=== PATIENT | male | born 1965 | race Hispanic/Latino ===

== ENCOUNTER 2022-07-20 17:10 | Emergency (ER) | payer BC ==
[~2022-07-20] VITALS: Ht 177.8 cm; Wt 83.5 kg
[2022-07-20] MEDS ORDERED: HYDROCODONE/APAP 5MG-325MG TAB PO ONE (18:00)
[2022-07-20] MEDS ORDERED: IBUPROFEN600 MG PO (18:54)
[2022-07-24] MEDS ORDERED: FLOMAX0.4 MG PO (12:52)
[2022-07-31] MEDS ORDERED: ACETAMIN-CODE12.5 ML (12:21)
== END 2022-07-20 19:15 | disposition home or self-care (01) ==
LOC: ER 17:48
DX: S62.292A Other fracture of first metacarpal bone, left hand, initial encounter for closed fracture (principal); W23.1XXA Caught, crushed, jammed, or pinched between stationary objects, initial encounter; Y99.0 Civilian activity done for income or pay
CPT/HCPCS: 99283

== ENCOUNTER → 2022-07-31 | Day surgery (SDC) | payer BC, OTHER ==
[~2022-07-31] MED LIST: ACETAMIN-CODE12.5 ML; ACETAMINOPHEN 1000 MG/100 ML 100 ML IV ONE; BUPIVACAINE HCL 0.5% INJ 30 ML VIAL INJ ONE; CEFAZOLIN SODIUM 2 GM ONE; DEXAMETHASONE SOD PHOS INJ 4 MG/ML SDV ONE; FENTANYL CITRATE/PF 100MCG/2 ML INJ ONE; FLOMAX0.4 MG PO; IBUPROFEN600 MG PO; LIDOCAINE HCL 2% LOCAL INJ 5 ML SDV VIAL INJ ONE; MIDAZOLAM HCL 2 MG/2 ML VIAL ONE; ONDANSETRON HCL INJ 2MG/ML 2ML 2 MG/ML VIAL ONE; POVIDONE IODINE 0.05% 0.05 % ML PO ONE; PROPOFOL IV EMULSION 10 MG/ML 20 ML VIAL ONE
[2022-07-31 15:20] VITALS: BP 134/81
== END | disposition home or self-care (01) ==
LOC: OR 11:46
PROVIDERS: ATTEND Specialist
DX: S62.232A Other displaced fracture of base of first metacarpal bone, left hand, initial encounter for closed fracture (principal); N40.0 Benign prostatic hyperplasia without lower urinary tract symptoms; W22.8XXA Striking against or struck by other objects, initial encounter; Y93.89 Activity, other specified; Y99.8 Other external cause status; Z01.810 Encounter for preprocedural cardiovascular examination
CPT/HCPCS: 76000; 93005; C1713; J1100; J2001; J2250; J2405; J3010